=== PATIENT | female | born 1945 | race Caucasian/White ===

== ENCOUNTER → 2018-08-04 13:15 | Outpatient (CLI) | payer MEDICARE, SELFPAY ==
--- NOTE | 2018-08-04 | DI.MG.S_ITS ---
BILATERAL DIGITAL SCREENING MAMMOGRAM 3D/2D WITH CAD: 08/04/2018 CLINICAL: Routine screening. Family history of breast cancer. Comparison is made to exams dated: 07/30/2017 mammogram, 05/02/2016 mammogram, and 04/11/2015 mammogram - [facility]. The tissue of both breasts is extremely dense, which lowers the sensitivity of mammography. Current study was also evaluated with a Computer Aided Detection (CAD) system. No significant masses, calcifications, or other findings are seen in either breast. There has been no significant interval change. IMPRESSION: NEGATIVE There is no mammographic evidence of malignancy. A 1 year screening mammogram is recommended. This exam was interpreted at Station ID: [id number]. NOTE: For mammograms, a report in lay terms will be sent to the patient. Approximately 15% of breast malignancies will not be visualized mammographically. In the management of a palpable breast mass, a negative mammogram must not discourage biopsy of a clinically suspicious lesion. Electronically Signed By: Shayla ross/johan:08/04/2018 14:17:13 letter sent: Normal Exam ACR BI-RADS Category 1: Negative 3341F
== END ==
PROVIDERS: PCP Family Medicine; Visit Provider Family Medicine
DX: Z12.31 Encounter for screening mammogram for malignant neoplasm of breast (principal); Z80.3 Family history of malignant neoplasm of breast
CPT/HCPCS: 77063; 77067

== ENCOUNTER → 2019-02-01 15:56 | Outpatient (CLI) | payer MEDICARE, SELFPAY | PROVIDERS: PCP Family Medicine; Visit Provider Physician Assistant | DX: N39.0 Urinary tract infection, site not specified (principal) | CPT/HCPCS: 87086 ==

== ENCOUNTER → 2019-02-17 09:34 | Outpatient (CLI) | payer MEDICARE, SELFPAY ==
[2019-02-17 10:06] LABS: Add Manual Diff / Slide Review NO; Basophils Absolute Auto 0 /uL (0-100); Basophils Percent Auto 1.1 % (0-2); Eosinophils Absolute Auto 100 /uL (0-450); Eosinophils Percent Auto 3.9 % (2-4); Hematocrit 39.9 % (36-46); Hemoglobin 13.7 g/dL (12.0-16.0); Lymphocytes Absolute Auto 1400 /uL (1100-4500); Lymphocytes Percent Auto 39.3 % (25-40); Mean Corpuscular HGB Conc 34.4 % (30-36); Mean Corpuscular Hemoglobin 30.8 PG (26-34); Mean Corpuscular Volume 89.8 fL (80-100); Monocytes Absolute Auto 300 /uL (0-900); Monocytes Percent Auto 8.1 % (3-14); Neutrophils Absolute Auto 1700 /uL (1500-7000); Neutrophils Percent Auto 47.6 % (50-75); Platelet Count 251 X10^3/uL (150-400); Red Blood Cell Count 4.44 X10^6/uL (4.0-5.2); Red Cell Distribution Width 12.8 % (11.6-14.8); White Blood Cell Count 3.5 X10^3/uL (4.5-11.0)
[2019-02-17 10:24] LABS: Alanine Aminotransferase 20 IU/L (9-52); Albumin 4.5 g/dL (3.5-5.0); Albumin Globulin Ratio 1.4 (1.0-2.8); Alkaline Phosphatase 60 U/L (38-126); Aspartate Aminotransferase 31 IU/L (14-36); Bilirubin Total 0.7 mg/dL (0.2-1.3); Blood Urea Nitrogen 18 mg/dL (7-17); Calcium 9.6 mg/dL (8.4-10.2); Carbon Dioxide 30 mmol/L (22-32); Chloride 104 mmol/L (98-107); Cholesterol 268 mg/dL (140-199); Estimated Glomerular Filt Rate > 60.0 mL/min (>60); Globulin 3.2 g/dL (1.7-4.1); Glucose 83 mg/dL (80-110); HDL Cholesterol 102 mg/dL (40-60); HEMOLYSIS < 15 (0-50); LDL Cholesterol Calculated 148 mg/dL (<100); Potassium 4.5 mmol/L (3.4-5.1); Sodium 141 mmol/L (137-145); Total Protein 7.7 g/dL (6.3-8.2); Triglycerides 90 mg/dL (35-150)
[2019-02-17 11:18] LABS: Thyroid Stimulating Hormone 0.55 uIU/mL (0.47-4.68)
== END ==
PROVIDERS: PCP Family Medicine; Visit Provider Family Medicine
DX: E03.9 Hypothyroidism, unspecified (principal); E78.2 Mixed hyperlipidemia; I65.29 Occlusion and stenosis of unspecified carotid artery
CPT/HCPCS: 36415; 80053; 80061; 84443; 85025

== ENCOUNTER → 2019-02-27 11:07 | Outpatient (CLI) | payer MEDICARE, SELFPAY ==
--- NOTE | 2019-02-27 11:20 | DI.CT.S_ITS ---
PROCEDURE: CT HEAD/BRAIN WO/W CON INDICATIONS: head injury difficulty with memory TECHNIQUE: 4.5 mm thick angled axial sections acquired from the foramen magnum to the vertex both before and after the administration of intravenous contrast, with coronal and sagittal reformats. For radiation dose reduction, the following was used: automated exposure control, adjustment of mA and/or kV according to patient size. COMPARISON: None. FINDINGS: Image quality: Excellent. CSF spaces: Basal cisterns are patent. No extra-axial fluid collections. Ventricles are symmetric in size and shape. Brain: No midline shift. No intracranial bleeds or masses. No abnormal intracranial enhancement. There is mild cerebral volume loss for age. There is minimal periventricular white matter chronic small vessel ischemic change. There is mild intracranial internal carotid artery atherosclerosis. Skull and face: Calvarium and visualized facial bones appear intact, without suspicious lesions. Sinuses: Visualized sinuses and mastoids are clear. IMPRESSION: 1. No acute intracranial disease process. 2. No intracranial hemorrhage. 3. No abnormal intracranial mass or suspicious postcontrast enhancement. 4. No areas of infarction. Dictated by: Ana Benitez MD, PhD on 02/27/2019 at 15:18 Approved by: Ana Benitez MD, PhD on 02/27/2019 at 15:23
== END ==
PROVIDERS: PCP Family Medicine; Visit Provider Family Medicine
DX: S09.90XA Unspecified injury of head, initial encounter (principal); R41.3 Other amnesia
CPT/HCPCS: 70470; Q9967

== ENCOUNTER → 2019-07-09 11:03 | Outpatient (CLI) | payer MEDICARE, SELFPAY ==
[2019-07-09 12:49] LABS: Hepatitis B Surface Antigen NEGATIVE s/c (NEGATIVE)
[2019-07-09 13:05] LABS: HIV 1 & 2 Ab/Ag 4th Gen Combo NEGATIVE (NEGATIVE); Hep C Virus Ab w/Reflex Quant NEGATIVE s/c (NEGATIVE)
[2019-07-09 13:48] LABS: Urine N gonorrhoeae NOT DETECTED
[2019-07-09 13:50] LABS: Urine Chlamydia NOT DETECTED
[2019-07-14 14:42] LABS: RPR Screen Nonreactive (Nonreactive)
== END ==
PROVIDERS: PCP Family Medicine; Visit Provider Family Medicine
DX: Z11.3 Encounter for screening for infections with a predominantly sexual mode of transmission (principal)
CPT/HCPCS: 36415; 86592; 86803; 87340; 87389; 87491; 87591

== ENCOUNTER → 2019-08-10 14:19 | Outpatient (CLI) | payer MEDICARE, SELFPAY ==
--- NOTE | 2019-08-10 | DI.MG.S_ITS ---
BILATERAL DIGITAL SCREENING MAMMOGRAM 3D/2D WITH CAD: 08/10/2019 CLINICAL: Routine screening. Family history of breast cancer. Comparison is made to exams dated: 08/04/2018 mammogram, 07/30/2017 mammogram, and 05/02/2016 mammogram - [facility]. The tissue of both breasts is heterogeneously dense. This may lower the sensitivity of mammography. Current study was also evaluated with a Computer Aided Detection (CAD) system. There are benign calcifications in both breasts. No significant masses, calcifications, or other findings are seen in either breast. There has been no significant interval change. IMPRESSION: There is no mammographic evidence of malignancy. A 1 year screening mammogram is recommended. This exam was interpreted at Station ID: [id number]. NOTE: For mammograms, a report in lay terms will be sent to the patient. Approximately 15% of breast malignancies will not be visualized mammographically. In the management of a palpable breast mass, a negative mammogram must not discourage biopsy of a clinically suspicious lesion. Electronically Signed By: Sumit garcia/johan:08/10/2019 15:11:21 letter sent: Normal Exam ACR BI-RADS Category 2: Benign Finding(s) 3342F
== END ==
PROVIDERS: PCP Family Medicine; Visit Provider Family Medicine
DX: Z12.31 Encounter for screening mammogram for malignant neoplasm of breast (principal); Z80.3 Family history of malignant neoplasm of breast
CPT/HCPCS: 77063; 77067

== ENCOUNTER → 2020-02-15 14:10 | Outpatient (CLI) | payer MEDICARE, SELFPAY ==
--- NOTE | 2020-02-15 14:25 | DI.CT.S_ITS ---
PROCEDURE: CT SOFT TISSUE NECK WO CON INDICATIONS: ESOPHAGUS NODULE TECHNIQUE: Non-contrast 3.0 mm axial sections acquired from the sella to the aortic arch. Additional oblique axial 3.0 mm sections acquired through the pharynx. 3 mm thick coronal and sagittal reformats were generated. For radiation dose reduction, the following was used: automated exposure control. COMPARISON: None. FINDINGS: Image quality: Excellent. Lymph nodes: No enlarged lymph nodes seen throughout the neck. Partially visualized calcified mediastinal and right hilar lymph nodes noted in the upper chest compatible sequela prior granulomatous disease. Vessels: Non-opacified vessels appear normal in caliber. Neck spaces: The oropharynx, nasopharynx, and pharynx demonstrate no mucosal lesions. The vocal cords, false vocal cords, pyriform sinuses, epiglottis and tongue base all appear normal. There is a small, polypoid soft tissue density lesion involving the inferior margin of the right vallecula. Extramucosal spaces appear unremarkable. Reported esophageal nodule is not identified by CT imaging. Glands: The parotid and submandibular glands appear normal, without stones. Thyroid gland is within normal limits. Miscellaneous: Visualized brain and orbits appear normal. Lung apices appear clear. Superficial soft tissues appear normal. Spine degenerative disc disease and facet arthropathy. IMPRESSION: 1. Polypoid, soft tissue density, mucosal-based mass involving the right vallecula. Early malignancy cannot be excluded. Recommend ENT consultation for direct visualization. 2. Reported esophageal nodule is not definitely identified by CT imaging. Recommend either endoscopy or barium contrast swallow study for further evaluation if clinically indicated. 3. No lymphadenopathy based on size criteria. Dictated by: Ana Benitez MD, PhD on 02/15/2020 at 15:02 Approved by: Ana Benitez MD, PhD on 02/15/2020 at 15:08
[2020-02-15 16:17] LABS: Add Manual Diff / Slide Review NO; Basophils Absolute Auto 0 /uL (0-100); Basophils Percent Auto 0.8 % (0-2); Eosinophils Absolute Auto 100 /uL (0-450); Eosinophils Percent Auto 2.7 % (2-4); Hematocrit 38.3 % (36-46); Hemoglobin 13.1 g/dL (12.0-16.0); Lymphocytes Absolute Auto 1200 /uL (1100-4500); Lymphocytes Percent Auto 29.9 % (25-40); Mean Corpuscular HGB Conc 34.3 % (30-36); Mean Corpuscular Hemoglobin 31.5 PG (26-34); Mean Corpuscular Volume 91.9 fL (80-100); Monocytes Absolute Auto 400 /uL (0-900); Monocytes Percent Auto 10.9 % (3-14); Neutrophils Absolute Auto 2300 /uL (1500-7000); Neutrophils Percent Auto 55.7 % (50-75); Platelet Count 214 X10^3/uL (150-400); Red Blood Cell Count 4.17 X10^6/uL (4.0-5.2); Red Cell Distribution Width 13.2 % (11.6-14.8); White Blood Cell Count 4.1 X10^3/uL (4.5-11.0)
[2020-02-15 16:46] LABS: Alanine Aminotransferase 23 IU/L (<35); Albumin 4.5 g/dL (3.5-5.0); Albumin Globulin Ratio 1.4 (1.0-2.8); Alkaline Phosphatase 75 U/L (38-126); Aspartate Aminotransferase 40 IU/L (14-36); BUN Creatinine Ratio 32.4 (6-22); Bilirubin Total 0.5 mg/dL (0.2-1.3); Blood Urea Nitrogen 24 mg/dL (7-17); Calcium 9.9 mg/dL (8.4-10.2); Carbon Dioxide 28 mmol/L (22-32); Chloride 103 mmol/L (98-107); Estimated Glomerular Filt Rate > 60.0 mL/min (>60); Globulin 3.3 g/dL (1.7-4.1); Glucose 86 mg/dL (80-110); HEMOLYSIS < 15 (0-50); Potassium 4.4 mmol/L (3.4-5.1); Sodium 140 mmol/L (137-145); Total Protein 7.8 g/dL (6.3-8.2)
[2020-02-15 17:02] LABS: Free T3, Triiodothyronine Free 3.15 pg/mL (2.77-5.27); Free T4, Direct Thyroxine 1.12 ng/dL (0.78-2.19)
[2020-02-15 17:15] LABS: Thyroid Stimulating Hormone 0.19 uIU/mL (0.47-4.68)
== END ==
PROVIDERS: PCP Family Medicine; Referring Provider Family Medicine; Visit Provider Family Medicine
DX: K22.9 Disease of esophagus, unspecified (principal); M54.2 Cervicalgia; E03.9 Hypothyroidism, unspecified; E21.3 Hyperparathyroidism, unspecified; E78.2 Mixed hyperlipidemia
CPT/HCPCS: 36415; 70490; 80053; 84439; 84443; 84481; 85025

== ENCOUNTER → 2020-03-08 11:44 | Outpatient (CLI) | payer MEDICARE, SELFPAY ==
[2020-03-09 14:43] LABS: COVID19 Sendout Not Detected (Not Detect)
== END ==
PROVIDERS: PCP Family Medicine; Visit Provider Registered Nurse
DX: Z01.812 Encounter for preprocedural laboratory examination (principal)
CPT/HCPCS: 87635

== ENCOUNTER → 2020-08-11 11:14 | Outpatient (CLI) | payer MEDICARE, SELFPAY ==
--- NOTE | 2020-08-11 | DI.MG.S_ITS ---
BILATERAL DIGITAL SCREENING MAMMOGRAM 3D/2D WITH CAD: 08/11/2020 CLINICAL: Routine screening. Family history of breast cancer. Comparison is made to exams dated: 08/10/2019 mammogram, 08/04/2018 mammogram, 07/30/2017 mammogram, and 05/02/2016 mammogram - [facility]. The tissue of both breasts is heterogeneously dense. This may lower the sensitivity of mammography. Current study was also evaluated with a Computer Aided Detection (CAD) system. There are benign calcifications in both breasts. No significant masses, calcifications, or other findings are seen in either breast. There has been no significant interval change. IMPRESSION: BENIGN There is no mammographic evidence of malignancy. A 1 year screening mammogram is recommended. This exam was interpreted at Station ID: [id number]. NOTE: For mammograms, a report in lay terms will be sent to the patient. Approximately 15% of breast malignancies will not be visualized mammographically. In the management of a palpable breast mass, a negative mammogram must not discourage biopsy of a clinically suspicious lesion. Electronically Signed By: Rory bradford/johan:08/11/2020 14:10:28 letter sent: Normal Exam ACR BI-RADS Category 2: Benign Finding(s) 3342F
== END ==
PROVIDERS: PCP Family Medicine; Referring Provider Family Medicine; Visit Provider Family Medicine
DX: Z12.31 Encounter for screening mammogram for malignant neoplasm of breast (principal); Z80.3 Family history of malignant neoplasm of breast
CPT/HCPCS: 77063; 77067

== ENCOUNTER → 2020-08-17 13:11 | Outpatient (CLI) | payer MEDICARE, SELFPAY | PROVIDERS: PCP Family Medicine; Referring Provider Family Medicine; Visit Provider Specialist | DX: M85.851 Other specified disorders of bone density and structure, right thigh (principal); E21.3 Hyperparathyroidism, unspecified; Z78.0 Asymptomatic menopausal state; Z82.62 Family history of osteoporosis | CPT/HCPCS: 77080 ==

== ENCOUNTER → 2021-02-17 07:57 | Outpatient (CLI) | payer MEDICARE, SELFPAY ==
[2021-02-17 09:23] LABS: Add Manual Diff / Slide Review NO; Basophils Absolute Auto 0 /uL (0-100); Basophils Percent Auto 1.3 % (0-2); Eosinophils Absolute Auto 100 /uL (0-450); Eosinophils Percent Auto 3.4 % (2-4); Hematocrit 38.3 % (36-46); Lymphocytes Absolute Auto 1400 /uL (1100-4500); Lymphocytes Percent Auto 41.8 % (25-40); Mean Corpuscular Hemoglobin 31.1 PG (26-34); Mean Corpuscular Volume 91.5 fL (80-100); Monocytes Absolute Auto 300 /uL (0-900); Monocytes Percent Auto 8.9 % (3-14); Neutrophils Absolute Auto 1500 /uL (1500-7000); Neutrophils Percent Auto 44.6 % (50-75); Platelet Count 207 X10^3/uL (150-400); Red Blood Cell Count 4.19 X10^6/uL (4.0-5.2); Red Cell Distribution Width 12.9 % (11.6-14.8); White Blood Cell Count 3.4 X10^3/uL (4.5-11.0)
[2021-02-17 09:39] LABS: Alanine Aminotransferase 20 IU/L (<35); Albumin 4.4 g/dL (3.5-5.0); Albumin Globulin Ratio 1.5 (1.0-2.8); Alkaline Phosphatase 56 U/L (38-126); Aspartate Aminotransferase 32 IU/L (14-36); BUN Creatinine Ratio 24.7 (6-22); Bilirubin Total 0.6 mg/dL (0.2-1.3); Blood Urea Nitrogen 18 mg/dL (7-17); Calcium 9.5 mg/dL (8.4-10.2); Carbon Dioxide 29 mmol/L (22-32); Chloride 106 mmol/L (98-107); Cholesterol 266 mg/dL (140-199); Estimated Glomerular Filt Rate > 60.0 mL/min (>60); Glucose 85 mg/dL (80-110); HDL Cholesterol 101 mg/dL (40-60); HEMOLYSIS < 15 (0-50); LDL Cholesterol Calculated 151 mg/dL (<100); Potassium 4.6 mmol/L (3.4-5.1); Sodium 140 mmol/L (137-145); Total Protein 7.4 g/dL (6.3-8.2); Triglycerides 72 mg/dL (35-150)
[2021-02-17 10:11] LABS: Free T3, Triiodothyronine Free 3.26 pg/mL (2.77-5.27); Free T4, Direct Thyroxine 1.15 ng/dL (0.78-2.19)
[2021-02-17 10:24] LABS: Thyroid Stimulating Hormone 0.712 uIU/mL (0.47-4.68)
== END ==
PROVIDERS: PCP Family Medicine; Referring Provider Family Medicine; Visit Provider Family Medicine
DX: E03.9 Hypothyroidism, unspecified (principal); E21.3 Hyperparathyroidism, unspecified; E78.2 Mixed hyperlipidemia
CPT/HCPCS: 36415; 80053; 80061; 84439; 84443; 84481; 85025

== ENCOUNTER → 2021-08-17 17:57 | Outpatient (CLI) | payer MEDICARE, SELFPAY ==
--- NOTE | 2021-08-17 | DI.MG.S_ITS ---
BILATERAL DIGITAL SCREENING MAMMOGRAM 3D/2D WITH CAD: 08/17/2021 CLINICAL: Routine screening. Family history of breast cancer. Comparison is made to exams dated: 08/11/2020 mammogram, 08/10/2019 mammogram, and 08/04/2018 mammogram - [facility]. The tissue of both breasts is heterogeneously dense. This may lower the sensitivity of mammography. Current study was also evaluated with a Computer Aided Detection (CAD) system. No significant masses, calcifications, or other findings are seen in either breast. There has been no significant interval change. IMPRESSION: NEGATIVE There is no mammographic evidence of malignancy. A 1 year screening mammogram is recommended. This exam was interpreted at Station ID: [id number]. NOTE: For mammograms, a report in lay terms will be sent to the patient. Approximately 15% of breast malignancies will not be visualized mammographically. In the management of a palpable breast mass, a negative mammogram must not discourage biopsy of a clinically suspicious lesion. Electronically Signed By: Letha yin/johan:08/18/2021 11:54:06 letter sent: Normal Exam ACR BI-RADS Category 1: Negative 3341F
== END ==
PROVIDERS: PCP Family Medicine; Referring Provider Family Medicine; Visit Provider Family Medicine
DX: Z12.31 Encounter for screening mammogram for malignant neoplasm of breast (principal); Z80.3 Family history of malignant neoplasm of breast
CPT/HCPCS: 77063; 77067

== ENCOUNTER → 2022-02-16 08:22 | Outpatient (CLI) | payer MEDICARE, SELFPAY ==
[2022-02-16 08:47] LABS: Add Manual Diff / Slide Review NO; Basophils Absolute Auto 0 /uL (0-100); Basophils Percent Auto 1.2 % (0-2); Eosinophils Absolute Auto 100 /uL (0-450); Eosinophils Percent Auto 3.2 % (2-4); Hematocrit 37.8 % (36-46); Hemoglobin 13.1 g/dL (12.0-16.0); Lymphocytes Absolute Auto 1400 /uL (1100-4500); Lymphocytes Percent Auto 38.9 % (25-40); Mean Corpuscular HGB Conc 34.7 % (30-36); Mean Corpuscular Hemoglobin 30.9 PG (26-34); Mean Corpuscular Volume 89.2 fL (80-100); Monocytes Absolute Auto 300 /uL (0-900); Monocytes Percent Auto 7.7 % (3-14); Neutrophils Absolute Auto 1700 /uL (1500-7000); Platelet Count 252 X10^3/uL (150-400); Red Blood Cell Count 4.24 X10^6/uL (4.0-5.2); Red Cell Distribution Width 12.9 % (11.6-14.8); White Blood Cell Count 3.5 X10^3/uL (4.5-11.0)
[2022-02-16 09:11] LABS: Alanine Aminotransferase 17 IU/L (<35); Albumin 4.3 g/dL (3.5-5.0); Albumin Globulin Ratio 1.5 (1.0-2.8); Alkaline Phosphatase 63 U/L (38-126); Aspartate Aminotransferase 30 IU/L (14-36); BUN Creatinine Ratio 22.5 (6-22); Bilirubin Total 0.9 mg/dL (0.2-1.3); Blood Urea Nitrogen 18 mg/dL (7-17); Carbon Dioxide 29 mmol/L (22-32); Chloride 104 mmol/L (98-107); Cholesterol 278 mg/dL (140-199); Estimated Glomerular Filt Rate > 60 mL/min (>60); Globulin 2.8 g/dL (1.7-4.1); Glucose 91 mg/dL (80-110); HDL Cholesterol 101 mg/dL (40-60); HEMOLYSIS < 15 (0-50); LDL Cholesterol Calculated 159 mg/dL (<100); Potassium 4.2 mmol/L (3.4-5.1); Sodium 139 mmol/L (137-145); Total Protein 7.1 g/dL (6.3-8.2); Triglycerides 90 mg/dL (35-150)
[2022-02-16 09:21] LABS: Vitamin D 25 Hydroxy (D3) 36.8 ng/mL (30.0-100.0)
[2022-02-16 09:38] LABS: TSH w/ Reflex to FT4 0.56 uIU/mL (0.47-4.68)
== END ==
PROVIDERS: PCP Family Medicine; Referring Provider Physician Assistant; Visit Provider Physician Assistant
DX: E03.9 Hypothyroidism, unspecified (principal); E78.2 Mixed hyperlipidemia; M81.0 Age-related osteoporosis without current pathological fracture
CPT/HCPCS: 36415; 80053; 80061; 82306; 84443; 85025

== ENCOUNTER → 2022-03-30 14:06 | Outpatient (CLI) | payer MEDICARE, SELFPAY | PROVIDERS: PCP Family Medicine; Referring Provider Family Medicine; Visit Provider Family Medicine | DX: M85.89 Other specified disorders of bone density and structure, multiple sites (principal); Z78.0 Asymptomatic menopausal state; Z79.890 Hormone replacement therapy | CPT/HCPCS: 77080 ==

== ENCOUNTER → 2022-08-02 14:08 | Outpatient (CLI) | payer MEDICARE, OTHER, SELFPAY ==
[2022-08-24 02:41] LABS: SARS CoV19 IgG >800.0
== END ==
PROVIDERS: PCP Family Medicine; Referring Provider Family Medicine; Visit Provider Family Medicine
DX: Z01.84 Encounter for antibody response examination (principal)
CPT/HCPCS: 36415; 86769

== ENCOUNTER → 2022-08-21 12:35 | Outpatient (CLI) | payer MEDICARE, OTHER, SELFPAY ==
--- NOTE | 2022-08-21 | DI.MG.S_ITS ---
BILATERAL DIGITAL SCREENING MAMMOGRAM 3D/2D WITH CAD: 08/21/2022 CLINICAL: Routine screening. Family history of breast cancer. Comparison is made to exams dated: 08/17/2021 mammogram, 08/11/2020 mammogram, and 08/10/2019 mammogram - [facility]. Both breasts are extremely dense, which lowers the sensitivity of mammography (category d />75% glandular tissue). Current study was also evaluated with a Computer Aided Detection (CAD) system. There are benign post operative findings in the right breast. No significant masses, calcifications, or other findings are seen in either breast. There has been no significant interval change. IMPRESSION: BENIGN There is no mammographic evidence of malignancy. A 1 year screening mammogram is recommended. This exam was interpreted at Station ID: [id number]. NOTE: For mammograms, a report in lay terms will be sent to the patient. Approximately 15% of breast malignancies will not be visualized mammographically. In the management of a palpable breast mass, a negative mammogram must not discourage biopsy of a clinically suspicious lesion. Electronically Signed By: Letha yin/johan:08/21/2022 16:38:32 letter sent: Normal Exam ACR BI-RADS Category 2: Benign Finding(s) 3342F
== END ==
PROVIDERS: PCP Family Medicine; Referring Provider Family Medicine; Visit Provider Family Medicine
DX: Z12.31 Encounter for screening mammogram for malignant neoplasm of breast (principal); Z80.3 Family history of malignant neoplasm of breast
CPT/HCPCS: 77063; 77067

== ENCOUNTER → 2022-12-06 08:48 | Outpatient (CLI) | payer MEDICARE, OTHER, SELFPAY ==
--- NOTE | 2022-12-06 08:50 | DI.US.S_ITS ---
PROCEDURE: US ABDOMEN LIMITED INDICATIONS: Splenic calcifications seen on CT for coronary calcium score TECHNIQUE: Real-time focused scanning was performed of the abdomen, with image documentation. COMPARISON: CT, CHEST ABDOMEN PELVIS WITH CONTRAST, 09/07/2011, 23:05. FINDINGS: Spleen measures 8.3 x 3.3 x 3.5 cm, volume 49.8 cc. Splenic vein is present. Splenic calcifications are present the largest measuring 4 mm. IMPRESSION: Splenic calcifications as above. Prior exam of initial visualization is not available for comparison. These are overall nonspecific and most commonly associated with prior granulomatous exposure. Dictated by: Bisi Sorensen M.D. on 12/06/2022 at 16:52 Approved by: Bisi Sorensen M.D. on 12/06/2022 at 16:53
== END ==
PROVIDERS: PCP Family Medicine; Referring Provider Physician Assistant; Visit Provider Physician Assistant
DX: D73.89 Other diseases of spleen (principal)
CPT/HCPCS: 76705

== ENCOUNTER → 2023-02-20 09:08 | Outpatient (CLI) | payer MEDICARE, OTHER, SELFPAY ==
[2023-02-20 10:15] LABS: Add Manual Diff / Slide Review NO; Basophils Absolute Auto 0 /uL (0-100); Eosinophils Absolute Auto 100 /uL (0-450); Eosinophils Percent Auto 3.9 % (2-4); Hematocrit 37.1 % (36-46); Hemoglobin 12.8 g/dL (12.0-16.0); Lymphocytes Absolute Auto 1100 /uL (1100-4500); Lymphocytes Percent Auto 32.4 % (25-40); Mean Corpuscular HGB Conc 34.6 % (30-36); Mean Corpuscular Hemoglobin 31.4 PG (26-34); Mean Corpuscular Volume 90.7 fL (80-100); Monocytes Absolute Auto 300 /uL (0-900); Neutrophils Absolute Auto 1800 /uL (1500-7000); Neutrophils Percent Auto 53.7 % (50-75); Platelet Count 190 X10^3/uL (150-400); Red Blood Cell Count 4.09 X10^6/uL (4.0-5.2); Red Cell Distribution Width 13.3 % (11.6-14.8); White Blood Cell Count 3.4 X10^3/uL (4.5-11.0)
[2023-02-20 10:21] LABS: Alanine Aminotransferase 25 IU/L (<35); Albumin 4.3 g/dL (3.5-5.0); Albumin Globulin Ratio 1.4 (1.0-2.8); Alkaline Phosphatase 67 U/L (38-126); Aspartate Aminotransferase 33 IU/L (14-36); BUN Creatinine Ratio 22.7 (6-22); Bilirubin Total 0.9 mg/dL (0.2-1.3); Blood Urea Nitrogen 17 mg/dL (7-17); Calcium 9.2 mg/dL (8.4-10.2); Carbon Dioxide 28 mmol/L (22-32); Chloride 105 mmol/L (98-107); Cholesterol 261 mg/dL (140-199); Estimated Glomerular Filt Rate > 60 mL/min (>60); Glucose 97 mg/dL (80-110); HDL Cholesterol 92 mg/dL (40-60); HEMOLYSIS < 15 (0-50); LDL Cholesterol Calculated 148 mg/dL (<100); Potassium 4.4 mmol/L (3.4-5.1); Sodium 139 mmol/L (137-145); Total Protein 7.3 g/dL (6.3-8.2); Triglycerides 103 mg/dL (35-150)
[2023-02-20 11:17] LABS: TSH w/ Reflex to FT4 1.21 uIU/mL (0.47-4.68)
== END ==
PROVIDERS: PCP Family Medicine; Referring Provider Physician Assistant; Visit Provider Physician Assistant
DX: E03.9 Hypothyroidism, unspecified (principal); E78.00 Pure hypercholesterolemia, unspecified
CPT/HCPCS: 36415; 80053; 80061; 84443; 85025

== ENCOUNTER → 2023-08-30 08:19 | Outpatient (CLI) | payer MEDICARE, OTHER, SELFPAY ==
--- NOTE | 2023-08-30 | DI.MG.S_ITS ---
BILATERAL DIGITAL SCREENING MAMMOGRAM 3D/2D WITH CAD: 08/30/2023 CLINICAL: Routine screening. Family history of breast cancer. Comparison is made to exams dated: 08/21/2022 mammogram, 08/17/2021 mammogram, and 08/11/2020 mammogram - [facility]. Both breasts are extremely dense, which lowers the sensitivity of mammography (category d />75% glandular tissue). Current study was also evaluated with a Computer Aided Detection (CAD) system. There are benign post operative findings in the right breast. No significant masses, calcifications, or other findings are seen in either breast. There has been no significant interval change. IMPRESSION: BENIGN There is no mammographic evidence of malignancy. A 1 year screening mammogram is recommended. Based on the Tyrer Cuzick model (a risk assessment model) the patient's lifetime risk is 16.1% and her 10 year risk is 0.0%. According to the ACR, ACS, and NCCN guidelines, an annual breast MRI exam along with mammogram is recommended if the patient's lifetime risk is 20% or greater. This exam was interpreted at Station ID: [id number]. NOTE: For mammograms, a report in lay terms will be sent to the patient. Approximately 15% of breast malignancies will not be visualized mammographically. In the management of a palpable breast mass, a negative mammogram must not discourage biopsy of a clinically suspicious lesion. Electronically Signed By: Rory bradford/johan:08/30/2023 17:26:28 letter sent: Normal Exam ACR BI-RADS Category 2: Benign Finding(s) 3342F
== END ==
PROVIDERS: PCP Family Medicine; Referring Provider Family Medicine; Visit Provider Family Medicine
DX: Z12.31 Encounter for screening mammogram for malignant neoplasm of breast (principal); Z80.3 Family history of malignant neoplasm of breast
CPT/HCPCS: 77063; 77067

== ENCOUNTER 2023-10-04 17:23 | Emergency (ER) | payer MEDICARE, OTHER, SELFPAY ==
[2023-10-04 17:29] VITALS: BP 169/81; PULSE 80; RESP 18; TEMP 37.3; O2SAT 100; BMI 19.3
--- NOTE | 2023-10-04 17:35 | DI.RAD.S_ITS ---
PROCEDURE: XR CHEST 1V INDICATIONS: chest pain TECHNIQUE: One view of the chest was acquired. COMPARISON: None. FINDINGS: Surgical changes and devices: None. Lungs and pleura: Lungs are clear. No pleural effusions or pneumothorax. Mediastinum: Mediastinal contours appear normal. Heart size is normal. Bones and chest wall: No suspicious bony lesions. Overlying soft tissues appear unremarkable. IMPRESSION: No acute cardiopulmonary abnormality is seen. Approved by: Richard Mccann M.D. on 10/04/2023 at 18:29
[2023-10-04 18:04] LABS: Prothrombin Time 11.2 SECONDS (9.4-12.5)
[2023-10-04 18:06] LABS: PTT Partial Thromboplastin Tim 30 SECONDS (25.1-36.5)
[2023-10-04 18:09] LABS: Alanine Aminotransferase 47 IU/L (<35); Albumin 4.6 g/dL (3.5-5.0); Albumin Globulin Ratio 1.4 (1.0-2.8); Alkaline Phosphatase 68 U/L (38-126); Aspartate Aminotransferase 41 IU/L (14-36); BUN Creatinine Ratio 22.2 (6-22); Bilirubin Total 0.7 mg/dL (0.2-1.3); Blood Urea Nitrogen 16 mg/dL (7-17); Calcium 9.7 mg/dL (8.4-10.2); Carbon Dioxide 29 mmol/L (22-32); Chloride 103 mmol/L (98-107); Creatine Kinase 28 U/L (30-135); Estimated Glomerular Filt Rate > 60 mL/min (>60); Globulin 3.3 g/dL (1.7-4.1); Glucose 94 mg/dL (80-110); HEMOLYSIS < 15 (0-50); Lipase 243 U/L (23-300); Magnesium 2.1 mg/dL (1.6-2.3); Potassium 3.6 mmol/L (3.4-5.1); Sodium 139 mmol/L (137-145); Total Protein 7.9 g/dL (6.3-8.2)
[2023-10-04 18:20] LABS: Troponin I < 0.012 ng/mL (0.01-0.034)
[2023-10-04 18:21] LABS: Add Manual Diff / Slide Review NO; Basophils Absolute Auto 100 /uL (0-100); Basophils Percent Auto 1.1 % (0-2); Eosinophils Absolute Auto 100 /uL (0-450); Eosinophils Percent Auto 1.9 % (2-4); Hematocrit 39.9 % (36-46); Hemoglobin 13.7 g/dL (12.0-16.0); Lymphocytes Absolute Auto 1500 /uL (1100-4500); Lymphocytes Percent Auto 23.8 % (25-40); Mean Corpuscular HGB Conc 34.5 % (30-36); Mean Corpuscular Hemoglobin 30.7 PG (26-34); Monocytes Absolute Auto 400 /uL (0-900); Monocytes Percent Auto 5.4 % (3-14); Neutrophils Absolute Auto 4400 /uL (1500-7000); Neutrophils Percent Auto 67.8 % (50-75); Platelet Count 275 X10^3/uL (150-400); Red Blood Cell Count 4.48 X10^6/uL (4.0-5.2); Red Cell Distribution Width 12.7 % (11.6-14.8); White Blood Cell Count 6.5 X10^3/uL (4.5-11.0)
--- NOTE | 2023-10-04 18:44 | ED_ITS ---
HPI - General Adult General Chief complaint: Dizziness Stated complaint: lightheaded/BP 160/92/sent from [facility] Time Seen by Provider: 10/04/23 18:18 Source: patient Mode of arrival: Family Vehicle History of Present Illness HPI narrative: Patient is a 78-year-old female. She states that for the past several weeks she has had occasional episodes with lightheadedness. She states it is not a room spinning sensation. Today it has been more persistent in the normal. She did note that yesterday she had some swelling around her eyes but that has since improved. She denies any ringing in her ears, fullness in her ears, sore throat, sinus congestion. No palpitations. No chest pain or shortness of breath. She stopped by [facility] today to check her blood pressure and it was elevated. She went to the walk-in clinic and advised that she come to the emergency department for further evaluation. Related Data Home Medications Medication Instructions Recorded Confirmed Lactobacillus 25 billion cap PO 02/22/22 02/26/23 cell-Bifido 25 billion [id number] capsule (Women's Probiotic) Previous Rx's Medication Instructions Recorded CMP Estradiol cream 0.0125% See Rx Instructions .Route 06/07/22 .COMPLEX #30 grams [ESTRADIOL VAG PEARLS] 25 mcg vaginal .COMPLEX #30 ea 01/28/23 levothyroxine 75 mcg tablet 75 mcg PO QAM #90 tabs 06/03/23 cyclobenzaprine 10 mg tablet 10 mg PO 3XD PRN for muscle spasm 10/01/23 #30 tabs lorazepam 0.5 mg tablet See Rx Instructions .Route 10/02/23 .COMPLEX #30 tabs Allergies Allergy/AdvReac Type Severity Reaction Status Date / Time Penicillins [PENICILLINS] Allergy Mild A CHILD Verified 10/04/23 17:35 ALLERGY Review of Systems Constitutional Constitutional: Reports system reviewed and no additional complaints, except as documented Eyes Eyes: Reports system reviewed and no additional complaints, except as documented ENT Ears, Nose, Mouth, and Throat: Reports system reviewed and no additional complaints, except as documented Cardiovascular Cardiovascular: Reports system reviewed and no additional complaints, except as documented Respiratory Respiratory: Reports system reviewed and no additional complaints, except as documented Gastrointestinal Gastrointestinal: Reports system reviewed and no additional complaints, except as documented Integumentary/Breasts Skin/Breast: Reports system reviewed and no additional complaints, except as documented Hematologic/Lymphatic On Anticoagulants: No Patient History Medical History Routine gynecological examination Cyst of neck Encounter for screening for infections with predominantly sexual mode of transmission Cognitive changes Depression Osteopenia Cervical spine disease Basal cell carcinoma, face Mumps Chickenpox Endometriosis (~1979) Degeneration of intervertebral disc of lumbar region (02/26/17) Irritable bowel syndrome with both constipation and diarrhea (08/07/16) Parathyroid adenoma (06/23/15) Osteoporosis (06/23/15) Hyperparathyroidism (06/23/15) Anxiety (11/25/13) Mixed hyperlipidemia Acquired hypothyroidism Surgical History History of breast biopsy Family History Father Cancer Grandfather Age: 78 Liver disease Grandmother Age: 73 Cancer Mother Heart disease Sister Age: 76 Breast CA High cholesterol Sister Age: 80 Hypertension High cholesterol Social History marital status: Smoking Status: Former smoker alcohol intake: current substance use type: does not use Smoking Status: Former smoker tobacco type: cigarettes alcohol intake frequency: 0-2 drinks per day Alcohol type: wine Substance Use Type: does not use Exam Initial Vital Signs Initial Vital Signs: Vital Signs Temperature 99.1 F 10/04/23 17:29 Pulse Rate 80 10/04/23 17:29 Respiratory Rate 18 10/04/23 17:29 Blood Pressure 169/81 H 10/04/23 17:29 Pulse Oximetry 100 10/04/23 17:29 Oxygen Delivery Method Room Air 10/04/23 17:29 Const General: cooperative, comfortable and No ill appearing HENMT Head: normal to inspection HENMT Other: Some fluid behind left tympanic membrane, no erythema Resp Effort & Inspection: normal respiratory effort Auscultation: clear to auscultation bilaterally Cardio Rate: regular rate Rhythm: regular rhythm GI Inspection: normal to inspection and non-distended Skin General: no rashes or lesions noted Neuro General: patient alert, patient awake, patient oriented x3 and moves all extremities Extrem General: normal to inspection and capillary refill normal Course Orders Ordered: ED Orders 10/04/23 17:35 XR chest 1V Stat EKG-12 Lead Stat 10/04/23 17:48 Complete Blood Count AUTO DIFF Stat Comprehensive Metabolic Panel Stat Lipase Stat Magnesium Stat PTT Partial Thromboplastin Jason Stat Prothrombin Time INR Stat Troponin & CK Cardiac Panel Stat Discontinued Medications Aspirin (Aspirin 81 Mg Chew Tab) 324 mg PO NOW ONE Stop: 10/04/23 17:36 Vital Signs Vital signs: Vital Signs - 8 hr 10/04/23 17:29 10/04/23 19:24 Temperature 99.1 F 98.6 F Pulse Rate 80 64 Respiratory Rate 18 16 Blood Pressure 169/81 H 144/65 H Pulse Oximetry 100 98 Oxygen Delivery Method Room Air Room Air Medical Decision Making Lab Data Lab results reviewed: Yes I reviewed the patient's lab results. 10/04/23 17:48 10/04/23 17:48 Labs: Lab Results 10/04/23 Range/Units 17:48 WBC 6.5 (4.5-11.0) X10^3/uL RBC 4.48 (4.0-5.2) X10^6/uL Hgb 13.7 (12.0-16.0) g/dL Hct 39.9 (36-46) % MCV 89.0 (80-100) fL MCH 30.7 (26-34) PG MCHC 34.5 (30-36) % RDW 12.7 (11.6-14.8) % Plt Count 275 (150-400) X10^3/uL Neut % (Auto) 67.8 (50-75) % Lymph % (Auto) 23.8 L (25-40) % [place] % (Auto) 5.4 (3-14) % Eos % (Auto) 1.9 L (2-4) % Baso % (Auto) 1.1 (0-2) % Neut # (Auto) 4400 (2207-8987) /uL Lymph # (Auto) 1500 (0613-5705) /uL Wetzel # (Auto) 400 (0-900) /uL Eos # (Auto) 100 (0-450) /uL Baso # (Auto) 100 (0-100) /uL PT 11.2 (9.4-12.5) SECONDS INR 1.0 (0.9-1.3) APTT 30 (25.1-36.5) SECONDS Sodium 139 (137-145) mmol/L Potassium 3.6 (3.4-5.1) mmol/L Chloride 103 (98-107) mmol/L Carbon Dioxide 29 (22-32) mmol/L BUN 16 (7-17) mg/dL Creatinine 0.72 (0.52-1.04) mg/dL Estimated GFR > 60 (>60) mL/min BUN/Creatinine Ratio 22.2 H (6-22) Glucose 94 (80-110) mg/dL Calcium 9.7 (8.4-10.2) mg/dL Magnesium 2.1 (1.6-2.3) mg/dL Total Bilirubin 0.7 (0.2-1.3) mg/dL AST 41 H (14-36) IU/L ALT 47 H (<35) IU/L Alkaline Phosphatase 68 (38-126) U/L Total Creatine Kinase 28 L (30-135) U/L Troponin I < 0.012 (0.01-0.034) ng/mL Total Protein 7.9 (6.3-8.2) g/dL Albumin 4.6 (3.5-5.0) g/dL Globulin 3.3 (1.7-4.1) g/dL Albumin/Globulin Ratio 1.4 (1.0-2.8) Lipase 243 (23-300) U/L Urine Dip Bedside Urine Glucose Negative Bedside Urine Bilirubin - Negative Bedside Urine Ketone - Negative Urine Specific [place] 1.015 Bedside Urine Occult Blood - Negative Bedside Urine pH 6.0 Bedside Urine Protein - Negative Bedside Urine Urobilinogen - Negative Bedside Urine Nitrite - Negative Bedside Urine Leukocytes - Negative Esterase Point of care testing: Urine Dip Bedside Urine Glucose Negative Bedside Urine Bilirubin - Negative Bedside Urine Ketone - Negative Urine Specific [place] 1.015 Bedside Urine Occult Blood - Negative Bedside Urine pH 6.0 Bedside Urine Protein - Negative Bedside Urine Urobilinogen - Negative Bedside Urine Nitrite - Negative Bedside Urine Leukocytes - Negative Esterase Imaging Data Chest x-ray: Radiologist's Impression: PROCEDURE: XR CHEST 1V INDICATIONS: chest pain TECHNIQUE: One view of the chest was acquired. COMPARISON: None. FINDINGS: Surgical changes and devices: None. Lungs and pleura: Lungs are clear. No pleural effusions or pneumothorax. Mediastinum: Mediastinal contours appear normal. Heart size is normal. Bones and chest wall: No suspicious bony lesions. Overlying soft tissues appear unremarkable. IMPRESSION: No acute cardiopulmonary abnormality is seen. ECG Data Interpretation: Sinus rhythm Ventricular rate 81 Normal axis Normal QRS Normal QTC No ST T wave changes MDM Narrative Medical decision making narrative: Workup here in the emergency department is unremarkable. Her blood pressure has improved to a systolic of 120s without specific intervention here in the ER. No fevers. She does have fluid behind the left tympanic membrane without any other signs of an infection. Given the swelling that she had around her eyes yesterday I have some question as to whether not this is a your eye/sinus congestion/middle ear fluid that is causing her symptoms. We discussed the use of antihistamines to see if her symptoms improve. I have low suspicion for CVA. Will discharge patient home with return precautions. She expressed understanding and agreement to plan. Discharge Plan Departure Patient Disposition: Home Clinical Impression: Lightheadedness Instructions: DI for Dizziness-Nonvertigo Activity Restrictions/Additional Instructions: Recommend that you continue to take all of your medications as directed. You can take an [id number] antihistamine such as Claritin/Yessenia/Zyrtec. Contact your primary care doctor for a follow-up. Return to the emergency department for new symptoms. Prescriptions: No Action Women's Probiotic 25B cell-25B cell-50 mg capsule PO CMP Estradiol cream 0.0125% See Rx Instructions .ROUTE .COMPLEX Qty: 30 0RF Rx Instructions: Apply 0.5 g to vagina 2 times per week; [ESTRADIOL VAG PEARLS] 25 mcg beads 25 mcg Vaginal .COMPLEX Qty: 30 11RF Rx Instructions: 25 mcg Vaginal ; Insert one sofia vaginally twice per week levothyroxine 75 mcg tablet 75 mcg PO QAM Qty: 90 3RF cyclobenzaprine 10 mg tablet 10 mg PO 3XD PRN (Reason: for muscle spasm) Qty: 30 0RF Rx Instructions: please call for appt prior to more fills, thanks 10/01/23 lorazepam 0.5 mg tablet See Rx Instructions .ROUTE .COMPLEX Qty: 30 0RF Dose Instruction: Take 1 tablet by mouth once daily As Needed for anxiety Rx Instructions: Take 1 tablet by mouth once daily As Needed for anxiety Referrals: Ramesh Chino MD [Primary Care Provider] - Stand Alone Forms: Patient Portal/API
[2023-10-04 19:24] VITALS: BP 144/65; PULSE 64; RESP 16; TEMP 37; O2SAT 98
== END 2023-10-04 19:25 | disposition home or self-care (01) ==
PROVIDERS: Emergency Medicine; Emergency Provider Emergency Medicine; PCP Family Medicine
DX: R42 Dizziness and giddiness (principal); R07.9 Chest pain, unspecified
CPT/HCPCS: 36415; 71045; 80053; 81003; 82550; 83690; 83735; 84484; 85025; 85610; 85730; 93005; 99284

== ENCOUNTER → 2023-10-22 16:16 | Outpatient (CLI) | payer MEDICARE, OTHER, SELFPAY ==
[2023-10-22 17:33] LABS: Alanine Aminotransferase 25 IU/L (<35); Albumin 4.3 g/dL (3.5-5.0); Albumin Globulin Ratio 1.4 (1.0-2.8); Alkaline Phosphatase 50 U/L (38-126); Aspartate Aminotransferase 33 IU/L (14-36); BUN Creatinine Ratio 21.5 (6-22); Bilirubin Total 0.6 mg/dL (0.2-1.3); Blood Urea Nitrogen 17 mg/dL (7-17); Calcium 9.6 mg/dL (8.4-10.2); Carbon Dioxide 27 mmol/L (22-32); Chloride 104 mmol/L (98-107); Estimated Glomerular Filt Rate > 60 mL/min (>60); Glucose 98 mg/dL (80-110); HEMOLYSIS < 15 (0-50); Potassium 4.1 mmol/L (3.4-5.1); Sodium 139 mmol/L (137-145); Total Protein 7.3 g/dL (6.3-8.2)
[2023-10-22 18:06] LABS: TSH w/ Reflex to FT4 0.03 uIU/mL (0.47-4.68)
[2023-10-22 18:40] LABS: Free T4, Direct Thyroxine 1.29 ng/dL (0.78-2.19)
== END ==
PROVIDERS: PCP Family Medicine; Referring Provider Family Medicine; Visit Provider Family Medicine
DX: E03.9 Hypothyroidism, unspecified (principal); R74.8 Abnormal levels of other serum enzymes
CPT/HCPCS: 36415; 80053; 84439; 84443

== ENCOUNTER → 2023-10-29 14:49 | Outpatient (CLI) | payer MEDICARE, OTHER, SELFPAY ==
[2023-10-31 19:00] LABS: Creatinine, 24 Urine 578 mg/24 hr (800-1800); Creatinine,Urine 46.2 mg/dL (Not Estab.); Dopamine, Ur 24hr 140 ug/24 hr (0-510); Epinephrine, U 24hr 4 ug/24 hr (0-20); Norepinephrine Ur 24hr 40 ug/24 hr (0-135)
[2023-11-01 16:58] LABS: Normetanephrine Total 299 ug/24 hr (131-612); Urine, Metanephrine 65 ug/L (Undefined); Urine, Normetanephrine 239 ug/L (Undefined)
== END ==
LOC: LAB 14:51
PROVIDERS: Family Medicine; PCP Family Medicine; Referring Provider Family Medicine; Visit Provider Family Medicine
DX: R03.0 Elevated blood-pressure reading, without diagnosis of hypertension (principal)
CPT/HCPCS: 82384; 83835

== ENCOUNTER → 2023-10-31 13:20 | Outpatient (CLI) | payer MEDICARE, OTHER, SELFPAY ==
--- NOTE | 2023-10-31 13:21 | DI.US.S_ITS ---
PROCEDURE: US CAROTID DOPPLER BI INDICATIONS: HX OF LIGHTHEADEDNESS TECHNIQUE: Color and pulse Doppler interrogation was performed of both carotid systems, with image documentation and velocity measurements. COMPARISON: None. FINDINGS: Stenosis calculations are based on SRU (Society of Radiologists in Ultrasound) criteria. The flow velocities and the arterial waveforms are normal within both carotid arterial systems. Minimal atherosclerotic plaque is seen on the right. The estimated degree of internal carotid artery stenosis is less than 50%. Antegrade flow is confirmed within both vertebral arteries. IMPRESSION: No hemodynamically significant stenosis is seen. Dictated by: Artis Darden M.D. on 10/31/2023 at 13:40 Approved by: Artis Darden M.D. on 10/31/2023 at 13:41
== END ==
LOC: US 13:21
PROVIDERS: PCP Family Medicine; Referring Provider Family Medicine; Visit Provider Family Medicine
DX: I65.29 Occlusion and stenosis of unspecified carotid artery (principal)
CPT/HCPCS: 93880

== ENCOUNTER → 2023-12-04 15:12 | Outpatient (CLI) | payer MEDICARE, OTHER, SELFPAY | LOC: CAR 15:14 | PROVIDERS: PCP Family Medicine; Referring Provider Physician Assistant; Visit Provider Physician Assistant | DX: I49.9 Cardiac arrhythmia, unspecified (principal) | CPT/HCPCS: 93246 ==

== ENCOUNTER → 2023-12-19 08:16 | Outpatient (CLI) | payer MEDICARE, OTHER, SELFPAY ==
--- NOTE | 2023-12-19 08:17 | DI.ECHO.S_ITS ---
[facility] +---------+ : : [address] : [place] : : : : [id number] : : : : Phone: [phone]---------+ Echocardiogram Report + + :Name: JONATHAN MCCOLLUM Study Date: 12/19/2023 Height: 62 in : :[facility] ReadingLocation: Weight: 111 lb : : Gender: Female BSA: 1.5 m2 : :: 1945 Age: 78 yrs BP: 120/62 mmHg: :Reason For Study: Arrhythmia : : Performed By: Giulia Okeefe : :Referring: JOYCELYN KUMAR : + + Interpretation Summary The ejection fraction is estimated to be 60-65%. Grade I diastolic dysfunction. The right ventricle grossly appears normal in size with probable normal systolic function. The right ventricular systolic pressure is estimated to be at least 28 mmHg based on an estimated right atrial pressure of 3 mm Hg. No significant valvular abnormality. Procedure: A two-dimensional transthoracic echocardiogram with color flow and Doppler was performed. The study quality was technically adequate. Comparison is made with the echocardiogram of 09-05-11. The heart rate ranged between 66-68 bpm during the study. Left Ventricle: The left ventricle is normal in size and wall thickness. The ejection fraction is estimated to be 60-65%. Grade I diastolic dysfunction. Right Ventricle: The right ventricle grossly appears normal in size with probable normal systolic function. Atria: The left atrium is mildly dilated. Right atrial size is normal. The interatrial septum grossly appears intact with no obvious evidence for an atrial septal defect. Mitral Valve: The mitral valve leaflets appear mildly thickened, but open well. There is trace mitral regurgitation. Aortic Valve: The aortic valve is trileaflet. The aortic valve opens well. There is no hemodynamically significant valvular aortic stenosis. No aortic regurgitation is present. Tricuspid Valve: The tricuspid valve leaflets are thin and pliable. There is trace tricuspid regurgitation. The right ventricular systolic pressure is estimated to be at least 28 mmHg based on an estimated right atrial pressure of 3 mm Hg. Pulmonic Valve: The pulmonic valve is not well seen, but is grossly normal. There is a trace or physiologic amount of pulmonic regurgitation. Great Vessels: The aortic root is normal size. The ascending aorta is normal in size. The aortic arch is normal in size. The IVC is of normal diameter and collapses greater than 50% with a sniff. This suggests a low right atrial pressure of 3 mm Hg. Pericardium/ Pleura There is no pericardial effusion. There is no pleural effusion. MMode/2D Measurements & Calculations LVIDd: 4.1 cm LVOT diam: 1.9 cm LVIDs: 2.3 cm Ao root diam: 2.6 cm FS: 44.8 % asc Aorta Diam: 2.9 cm EPSS: 0.31 cm Ao Arch Diam (Prox Trans): 2.1 cm IVSd: 0.93 cm LVPWd: 0.68 cm LV chandra. diameter/BSA (cm/m^2): 2.8 LV sys. diameter/BSA (cm/m^2): 1.5 LA A2 area: 19.4 cm2 RA long axis: 4.1 cm LA A4 area: 15.8 cm2 RA area: 12.2 cm2 LA length (vol): 4.7 cm RA vol: 30.8 ml LA vol: 55.3 ml RA : 20.7 ml/m2 LA vol index: 37.2 ml/m2 IVC diam: 1.5 cm RVD1 (basal): 1.8 cm Doppler Measurements & Calculations Ao V2 max: 109.7 cm/sec LVOT Max Steve: 85.3 cm/sec Ao V2 mean: 76.1 cm/sec LV V1 max P.9 mmHg Ao max P.8 mmHg LV V1 VTI: 19.0 cm Ao mean P.6 mmHg NANCY(I,D): 2.0 cm2 Ao V2 VTI: 26.9 cm NANCY(V,D): 2.2 cm2 sev ratio: 0.70 NANCY indexed to BSA (cm^2/m^2): 1.4 MV E max stvee: 93.0 cm/sec TR max steve: 247.6 cm/sec MV A max steve: 68.7 cm/sec TR max P.5 mmHg MV E/A: 1.4 PA V2 max: 85.0 cm/sec Med Peak E' Steve: 8.5 cm/sec PA V2 mean: 64.3 cm/sec E/E' med: 11.0 PA mean P.8 mmHg Lat Peak E' Steve: 7.4 cm/sec PA pr(Accel): 1.9 mmHg E/E' lat: 12.5 E/e' average: 11.8 MV dec time: 0.17 sec [facility] 54.6 ml Reading Physician:PM
[2023-12-19 11:09] LABS: Thyroid Stimulating Hormone 2.01 uIU/mL (0.47-4.68)
== END ==
PROVIDERS: Family Medicine; PCP Family Medicine; Referring Provider Physician Assistant; Visit Provider Physician Assistant
DX: I49.9 Cardiac arrhythmia, unspecified (principal); R03.0 Elevated blood-pressure reading, without diagnosis of hypertension; R42 Dizziness and giddiness; E03.9 Hypothyroidism, unspecified
CPT/HCPCS: 36415; 84443; 93306

== ENCOUNTER → 2024-04-03 12:50 | Outpatient (CLI) | payer MEDICARE, OTHER, SELFPAY ==
--- NOTE | 2024-04-03 12:52 | DI.MRI.S_ITS ---
PROCEDURE: MR LUMBAR SPINE WO CON INDICATIONS: Sciatica Right lower extremity; Hx of DDD and osteoporosis TECHNIQUE: Noncontrast sagittal T1 spin echo and T2 fast echo, sagittal STIR, and T2 fast spin echo through the lumbar spine. In cases with scoliosis, additional coronal T2 fast spin echo may be performed. COMPARISON: [facility], , L-SPINE WITHOUT CONTRAST, 02/11/2017, 10:46. FINDINGS: Image quality: Excellent. Alignment and Curvature: 7 mm anterolisthesis of L4 on L5, as before. Bone Marrow: Marrow is of normal overall signal. No acute vertebral body compression fractures. Spinal Cord: Conus medullaris terminates at the L1 level. Visualized cord demonstrates normal signal and size. Paraspinous Soft Tissues: No paravertebral masses. T12-L1: Normal appearance. L1-L2: Normal appearance. L2-L3: Disc bulge. Facet hypertrophy. No canal stenosis. Mild left foraminal stenosis. L3-L4: Interval worsening of canal stenosis, in part secondary to significant increase in posterior epidural lipomatosis. This can be seen when comparing previous sagittal image 10 of series 2 to current sagittal image 10 of series 2, as well as previous axial image 16 of series 6 and current image 20 of series 6. Canal stenosis is moderate to severe. It is also secondary to disc bulge and facet and ligament hypertrophy. There is moderate to severe left foraminal stenosis with a mild degree of left foraminal L3 nerve root impingement. L4-L5: Exuberant facet hypertrophy, as before. This results in moderate central canal stenosis. Anterior component of right facet hypertrophy results in severe right lateral recess stenosis with significant impingement on the right L5 nerve root in the right lateral recess. Reference axial image 15 of series 7. Again noted is moderate to severe right foraminal narrowing with a degree of right foraminal L4 nerve root impingement. There is [id number] left foraminal narrowing. L5-S1: Disc bulge. Facet hypertrophy. No central canal stenosis. Progression of left foraminal narrowing, which is now severe, with left foraminal L5 nerve root impingement. IMPRESSION: 1. Multilevel underlying facet arthropathy. 2. Progression of findings at L3-L4, in part secondary to worsening epidural lipomatosis. There is moderate to severe canal stenosis and moderate to severe left foraminal stenosis. 3. At L4-L5, exuberant facet hypertrophy has resulted in moderate central canal stenosis and severe right lateral recess stenosis. There is significant impingement on the right L5 nerve root in the right lateral recess. Again noted is moderate to severe right foraminal narrowing. 4. Progression of left foraminal narrowing at L5-S1, now severe. Dictated by: Eloy Victor M.D. on 04/03/2024 at 16:22 Approved by: Eloy Victor M.D. on 04/03/2024 at 17:06
== END ==
PROVIDERS: PCP Family Medicine; Referring Provider Physician Assistant; Visit Provider Physician Assistant
DX: M51.16 Intervertebral disc disorders with radiculopathy, lumbar region (principal); M47.26 Other spondylosis with radiculopathy, lumbar region; M47.27 Other spondylosis with radiculopathy, lumbosacral region; M48.061 Spinal stenosis, lumbar region without neurogenic claudication; M48.07 Spinal stenosis, lumbosacral region; M81.0 Age-related osteoporosis without current pathological fracture
CPT/HCPCS: 72148

== ENCOUNTER → 2024-09-01 15:16 | Outpatient (CLI) | payer MEDICARE, OTHER, SELFPAY ==
--- NOTE | 2024-09-01 15:18 | DI.MG.S_ITS ---
BILATERAL DIGITAL SCREENING MAMMOGRAM 3D/2D WITH CAD: 09/01/2024 CLINICAL: Routine screening. Family history of breast cancer. Comparison is made to exams dated: 08/30/2023 mammogram, 08/21/2022 mammogram, 08/17/2021 mammogram, 08/11/2020 mammogram, 08/10/2019 mammogram, and 08/04/2018 mammogram - [facility]. The breasts are heterogeneously dense, which may obscure small masses (category c / 51-75% glandular tissue). Current study was also evaluated with a Computer Aided Detection (CAD) system. There are benign post operative findings in the right breast. No significant masses, calcifications, or other findings are seen in either breast. There has been no significant interval change. IMPRESSION: BENIGN There is no mammographic evidence of malignancy. A 1 year screening mammogram is recommended. Based on the Tyrer Cuzick model (a risk assessment model) the patient's lifetime risk is 9.9% and her 10 year risk is 0.0%. According to the ACR, ACS, and NCCN guidelines, an annual breast MRI exam along with mammogram is recommended if the patient's lifetime risk is 20% or greater. This exam was interpreted at Station ID: [id number]. NOTE: For mammograms, a report in lay terms will be sent to the patient. Approximately 15% of breast malignancies will not be visualized mammographically. In the management of a palpable breast mass, a negative mammogram must not discourage biopsy of a clinically suspicious lesion. Electronically Signed By: Zeina Alonzo M.D., Ph.D. mala/johan:09/02/2024 17:04:23 letter sent: Normal Exam ACR BI-RADS Category 2: Benign
== END ==
PROVIDERS: PCP Family Medicine; Referring Provider Family Medicine; Visit Provider Family Medicine
DX: Z12.31 Encounter for screening mammogram for malignant neoplasm of breast (principal); Z80.3 Family history of malignant neoplasm of breast; R92.333 Mammographic heterogeneous density, bilateral breasts
CPT/HCPCS: 77063; 77067

== ENCOUNTER → 2024-11-27 10:38 | Outpatient (CLI) | payer MEDICARE, OTHER, SELFPAY ==
[2024-11-27 12:00] LABS: BUN Creatinine Ratio 26.6 (6-22); Blood Urea Nitrogen 21 mg/dL (7-17); Calcium 9.3 mg/dL (8.4-10.2); Carbon Dioxide 25 mmol/L (22-32); Chloride 105 mmol/L (98-107); Estimated Glomerular Filt Rate > 60 mL/min (>60); Glucose 137 mg/dL (80-110); HEMOLYSIS < 15 (0-50); Potassium 4.3 mmol/L (3.4-5.1); Sodium 139 mmol/L (137-145)
== END ==
PROVIDERS: PCP Family Medicine; Referring Provider Physician Assistant; Visit Provider Physician Assistant
DX: G47.62 Sleep related leg cramps (principal); R03.0 Elevated blood-pressure reading, without diagnosis of hypertension; I47.10 Supraventricular tachycardia, unspecified
CPT/HCPCS: 36415; 80048

== ENCOUNTER → 2025-08-16 10:34 | Outpatient (CLI) | payer MEDICARE, OTHER, SELFPAY ==
[2025-08-16 10:53] LABS: Add Manual Diff / Slide Review NO; Hematocrit 38.6 % (36-46); Hemoglobin 13.3 g/dL (12.0-16.0); Lymphocytes Absolute Auto 1200 /uL (1100-4500); Mean Corpuscular HGB Conc 34.6 % (30-36); Mean Corpuscular Hemoglobin 30.9 PG (26-34); Mean Corpuscular Volume 89.4 fL (80-100); Platelet Count 221 X10^3/uL (150-400)
[2025-08-16 11:38] LABS: Alanine Aminotransferase 16 IU/L (<35); Albumin 4.4 g/dL (3.5-5.0); Albumin Globulin Ratio 1.6 (1.0-2.8); Alkaline Phosphatase 77 U/L (38-126); Blood Urea Nitrogen 14 mg/dL (7-17); Calcium 9.1 mg/dL (8.4-10.2); Carbon Dioxide 26 mmol/L (22-32); Chloride 105 mmol/L (98-107); Cholesterol 265 mg/dL (140-199); Estimated Glomerular Filt Rate > 60 mL/min (>60); Globulin 2.8 g/dL (1.7-4.1); Glucose 103 mg/dL (70-99); HDL Cholesterol 69 mg/dL (40-60); HEMOLYSIS < 15 (0-50); Potassium 3.9 mmol/L (3.4-5.1); Sodium 141 mmol/L (137-145); Total Protein 7.2 g/dL (6.3-8.2); Triglycerides 179 mg/dL (35-150)
[2025-08-16 12:06] LABS: TSH w/ Reflex to FT4 0.56 uIU/mL (0.47-4.68)
== END ==
PROVIDERS: PCP Family Medicine; Referring Provider Family Medicine; Visit Provider Family Medicine
DX: E78.00 Pure hypercholesterolemia, unspecified (principal); I86.8 Varicose veins of other specified sites; E03.9 Hypothyroidism, unspecified; E87.5 Hyperkalemia
CPT/HCPCS: 36415; 80053; 80061; 84443; 85025

== ENCOUNTER → 2025-09-03 09:15 | Outpatient (CLI) | payer MEDICARE, OTHER, SELFPAY ==
--- NOTE | 2025-09-03 09:17 | DI.MG.S_ITS ---
MM screening mammo BI: 09/03/2025. BI-RADS: 1 CLINICAL: 80-year old female for bilateral screening mammogram. Tyrer-Cuzick lifetime risk of 4.0%. Current reported family history of breast cancer: sister. The patient had a prior right breast biopsy. PRIOR EXAMS 09/01/2024, 08/30/2023, 08/21/2022, 08/17/2021. MAMMOGRAPHY TECHNIQUE: 2D and 3D (tomosynthesis) digital mammographic views obtained, with additional images as needed for full coverage. Current study was also evaluated with a Computer Aided Detection (CAD) system. DENSITY C. The breasts are heterogeneously dense, which may obscure small masses. MAMMOGRAPHY FINDINGS Bilateral: No suspicious mass, asymmetry, microcalcification, or other abnormality seen. IMPRESSION: * No evidence of malignancy. RECOMMENDATIONS Bilateral * Annual screening mammography. OVERALL ASSESSMENT CATEGORY BI-RADS-1: Negative. The [employer] recommends annual screening mammography beginning at age 40 for women with average risk of breast cancer. ELECTRONICALLY SIGNED: Rissa Pardo M.D. on 09/06/2025 at 03:50:26 PM PT Interpreting Station ID: [id number]
== END ==
LOC: MAMMO 09:16
PROVIDERS: PCP Family Medicine; Referring Provider Family Medicine; Visit Provider Family Medicine
DX: Z12.31 Encounter for screening mammogram for malignant neoplasm of breast (principal); R92.333 Mammographic heterogeneous density, bilateral breasts; Z80.3 Family history of malignant neoplasm of breast
CPT/HCPCS: 77063; 77067

== ENCOUNTER → 2025-09-07 10:50 | Outpatient (CLI) | payer MEDICARE, OTHER, SELFPAY ==
--- NOTE | 2025-09-07 10:52 | DI.RAD.S_ITS ---
PROCEDURE: XR DEXA AXIAL SKELETON INDICATIONS: osteopenia COMPARISON: [facility], , DEXA AXIAL SKELETON, 02/09/2016, 16:07. FINDINGS: Lumbar Spine: Bone mineral density 0.847 g/cm2, T score -1.8, osteopenia.. Left Femoral Neck: Bone mineral density is 0.583 g/cm2, T score -2.4. Left Hip: Bone mineral density 0.705 g/cm2, T score -1.9, osteopenia. Dissimilar scan technique utilized. Fracture Risk Calculation (when applicable): 10-year fracture risk of a major osteoporotic fracture 15 percent and of a hip fracture 5 percent. (T score greater or equal to -1.0 to: NORMAL) (T score from -1.1 to -2.4: OSTEOPENIA) (T score less than or equal to -2.5: OSTEOPOROSIS) IMPRESSION: Osteopenia. Dissimilar scan technique limits evaluation for interval change. Follow-up guidelines as follows: Osteoporosis: Consider a repeat DEXA and Vertebral Fracture Assessment (VFA) exam in 2 years or sooner if medically necessary, to reassess this patient's status. Osteopenia: Consider a repeat DEXA in 2-3 years to reassess this patient's status, or if there is a new clinical indication. Normal: Consider a repeat DEXA in 5 years or sooner, or if there is a new clinical indication. All treatment decisions require clinical judgment and consideration of individual patient factors, including patient preferences, comorbidities, previous drug use, risk factors not captured in the FRAX model (e.g., frailty, falls, vitamin D deficiency, increased bone turnover, interval significant decline in bone density ) and possible under- or over-estimation of fracture risk by FRAX. In addition, the NOF Guide recommends that FDA-approved medical therapies be considered in postmenopausal women and men age >= 50 years with a: * Hip or vertebral (clinical or morphometric) fracture * T-score of <=-2.5 at the spine or hip * Ten-year fracture probability by FRAX of >= 3% for hip fracture or >=20% for major osteoporotic fracture. Dictated by: Katey Diego M.D. on 09/08/2025 at 5:43 Approved by: Katey Diego M.D. on 09/08/2025 at 5:44
== END ==
LOC: RAD 10:52
PROVIDERS: PCP Family Medicine; Referring Provider Family Medicine; Visit Provider Family Medicine
DX: M85.89 Other specified disorders of bone density and structure, multiple sites (principal); Z78.0 Asymptomatic menopausal state
CPT/HCPCS: 77080